=== PATIENT | female | born 1945 | race Hispanic/Latino ===

== ENCOUNTER 2024-06-16 09:23 | Emergency (ER) | payer OTHER, MEDICARE ==
[~2024-06-16] VITALS: Ht 152.4 cm; Wt 78.5 kg
[2024-06-16 09:52] LABS: BASOPHILS # (AUTO) 0.02 K/uL (0.00-0.20); BASOPHILS % (AUTO) 0.4 % (0.0-5.0); EOSINOPHILS # (AUTO) 0.14 K/uL (0.00-0.70); EOSINOPHILS % (AUTO) 2.9 % (0.0-8.0); HEMATOCRIT 40.2 % (36-48); IMMATURE GRANULOCYTE ABSOLUTE 0.01 K/uL (0-1); LYMPHOCYTES # (AUTO) 1.2 K/uL (1.0-4.8); LYMPHOCYTES % (AUTO) 24.5 % (21.0-51.0); MEAN CORPUSCULAR HEMOGLOBIN 31.2 pg (27.0-33.0); MEAN CORPUSCULAR HGB CONC 33.3 g/dL (32.0-36.0); MEAN CORPUSCULAR VOLUME 93.5 fL (79-99); MONOCYTES # (AUTO) 0.5 K/uL (0.1-1.0); MONOCYTES % (AUTO) 10.9 % (3.0-13.0); NEUTROPHILS % (AUTO) 61.1 % (40.0-77.0); PLATELET COUNT (AUTO) 227 K/uL (130-400); RED CELL DISTRIBUTION WIDTH 13.6 % (11.0-15.5); WHITE BLOOD COUNT (AUTO) 4.9 K/uL (4.8-10.8)
[2024-06-16 10:00] LABS: RAPID GROUP A STREP negative (NEGATIVE)
[2024-06-16 10:04] LABS: CREATININE 0.8 mg/dL (0.5-1.0); POTASSIUM 3.9 mmol/L (3.5-5.1)
[2024-06-16 10:10] LABS: COVID19 (SARS ANTIGEN RAPID) PRESUMPTIVE NEGATIVE (NEGATIVE); INFLUENZA TYPE A Negative For Type A (NEGATIVE); INFLUENZA TYPE B Negative For Type B (NEGATIVE)
[2024-06-16 10:32] LABS: B-TYPE NATRIURETIC PEPTIDE 14 pg/mL (0-100)
[2024-06-16] MEDS: dexaMETHasone SOD PHOSPHATE 4 MG/ML 1ML VIAL IM ONE (10:50)
[2024-06-16 11:03] VITALS: BP 118/76; TEMP 98.1; O2SAT 97
[2024-06-16] MEDS: IpraTROPium/alBUTERol SULFATE 3 ML SOLUTION IH ONE (11:06)
[2024-06-16 11:07] VITALS: PULSE 85; RESP 18
[2024-06-16] MEDS ORDERED: ALBU18HF7 IH (11:32)
[2024-06-16] MEDS ORDERED: AZIT500T4 PO (11:32)
[2024-06-16] MEDS ORDERED: PRED5TAB PO (11:32)
--- NOTE | 2024-06-16 11:32 | ERN ---
General Chief Complaint: Congestion Stated Complaint: COUGH Time Seen by MD: 09:24 Source: patient History of Present Illness Initial Comments PATIENT IS A 79-YEAR-OLD FEMALE COMING IN TO BE EVALUATED FOR URI SYMPTOMS. PATIENT STATES THAT THE SYMPTOMS BEGAN EARLIER TODAY. SHE STATES THAT HE DOES NOT HAS A HISTORY OF COPD OR ASTHMA. SHE STATES THAT HE WAS HAD NO FEVER OR CHILLS. Allergies: Coded Allergies: No Known Drug Allergies (Unverified Allergy, Unknown, 04/04/24) Past Medical History Past Medical History: Depression, Diabetes-Type II, Hypertension Past Surgical History: None ROS Dictation CONSTITUTIONAL: NO CHILLS, NO FEVER, NO WEAKNESS, NO DIAPHORESIS, NO MALAISE. HEAD/FACE: NO SIGNS OF TRAUMA. EENT: NO EYE PAIN, NO BLURRED VISION, NO TEARING, NO DOUBLE VISION, NO EAR PAIN, NO EAR DISCHARGE, NO NOSE PAIN, NO NASAL CONGESTION, NO THROAT PAIN, NO THROAT SWELLING, NO MOUTH PAIN. RESPIRATORY: COUGH, NO ORTHOPNEA, NO SOB, NO STRIDOR, WHEEZING. CARDIOVASCULAR: NO CHEST PAIN, NO EDEMA, NO PALPITATIONS, NO SYNCOPE. GASTROINTESTINAL/ABDOMINAL: NO ABDOMINAL PAIN, NO CONSTIPATION, NO DIARRHEA, NO NAUSEA, NO VOMITING. GENITOURINARY: NO ABNORMAL DISCHARGE, NO DYSURIA, NO FREQUENT URINATION, NO HEMATURIA. NO COMPLAINTS OF PAIN IN THE GENITALS. MUSCULOSKELETAL: NO BACK PAIN, NO GOUT, NO JOINT PAIN, NO JOINT SWELLING, NO MUSCLE PAIN, NO MUSCLE STIFFNESS, NO NECK PAIN. INTEGUMENTARY: NO CHANGE IN COLOR, NO CHANGE IN HAIR/NAILS, NO DRYNESS, NO LESION, NO LUMPS, NO RASH. NEUROLOGICAL/PSYCH: NO ANXIETY, NOT DEPRESSED, NO EMOTIONAL PROBLEM, NO HEADACHE, NO NUMBNESS, NO PRE-EXISTING DEFICIT, NO HISTORY OF SEIZURES, NO TREMORS, NO WEAKNESS. HEMATOLOGIC/LYMPHATIC: NOT ANEMIC, NO HISTORY OF BLOOD CLOTS, NO APPARENT BLEEDING, NO BRUISING, GLANDS NOT SWOLLEN. ALL SYSTEMS NEGATIVE, EXCEPT NOTED. Physical Exam Physical Exam Dictation VITAL SIGNS: REVIEWED. GENERAL APPEARANCE: ALERT, ORIENTED X3, NO ACUTE DISTRESS, OBESE. HEAD AND FACE: NON-TRAUMATIC. EYES: PERRL, PINK CONJUNCTIVAS, EYELID NO TRAUMA, ANTERIOR CHAMBER CLEAR. EARS: PINNAS INTACT AND NO SIGNS OF TRAUMA OR ERYTHEMA. EAR CANALS CLEAR AND NO DISCHARGE. TMS NO ERYTHEMA. NOSE: NO DISCHARGE, NO BLEEDING. OROPHARYNX: MOUTH NORMAL, TEETH NO CARIES, TONGUE PINK. PHARYNX CLEAR, NO ERYTHEMA. TONSILS NO EXUDATES, NO ABSCESSES NOTED. MUCOUS MEMBRANE MOIST. NECK: SUPPLE, NON-TENDER, NO THYROMEGALY, NO MASSES, NO JVD, NO BRUITS. BREAST: DEFERRED. CHEST: NO TENDERNESS, NO CREPITUS, NO PARADOXICAL MOVEMENT, NO RETRACTIONS. LUNGS: CLEAR, WELL-VENTILATED, SYMMETRIC, NO RALES, WHEEZING, RHONCHI, NO STRIDOR, GOOD BREATH SOUNDS BILATERALLY. HEART: REGULAR RATE, REGULAR RHYTHM, NO MURMUR, NO GALLOPS. VASCULAR: NO PERIPHERAL EDEMA. ABDOMEN: SOFT, POSITIVE BOWEL SOUNDS, NONDISTENDED, NO GUARDING, NONTENDER, NO REBOUND, NO MASSES NO HEPATOMEGALY, NO SPLENOMEGALY, NO SOLER'S SIGN, NO HERNIAS. RECTAL: DEFERRED. GENITAL: DEFERRED. NEUROLOGICAL: NORMAL SPEECH, GROSS MOTOR FUNCTION INTACT, GROSS SENSORY FUNCTION INTACT. MUSCULOSKELETAL: NECK NONTENDER, FULL RANGE OF MOTION, BACK NONTENDER, FULL RANGE OF MOTION. EXTREMITIES: NONTENDER, FULL RANGE OF MOTION. SKIN: COLOR PINK, DRY, NO TURGOR, NO RASH, NO LACERATIONS, NO ABRASIONS, NO CONTUSIONS. LYMPHATICS: DEFERRED. Results Laboratory and Microbiology Lab and Micro Result Laboratory Tests Test 06/16/24 09:30 06/16/24 09:46 Influenza Type A Antigen Negative For Type A Influenza Type B Antigen Negative For Type B SARS-CoV-2 Antigen (Rapid) PRESUMPTIVE NEGATIVE Group A Streptococcus Rapid negative (NEGATIVE) White Blood Count 4.9 K/uL (4.8-10.8) Red Blood Count 4.30 MIL/uL (4.00-5.50) Hemoglobin 13.4 g/dL (12.0-16.0) Hematocrit 40.2 % (36-48) Mean Corpuscular Volume 93.5 fL (79-99) Mean Corpuscular Hemoglobin 31.2 pg (27.0-33.0) Mean Corpuscular Hemoglobin Concent 33.3 g/dL (32.0-36.0) Red Cell Distribution Width 13.6 % (11.0-15.5) Platelet Count 227 K/uL (130-400) Mean Platelet Volume 9.5 fL (7.5-10.5) Immature Granulocyte % (Auto) 0.2 % (0-1) Neutrophils (%) (Auto) 61.1 % (40.0-77.0) Lymphocytes (%) (Auto) 24.5 % (21.0-51.0) Monocytes (%) (Auto) 10.9 % (3.0-13.0) Eosinophils (%) (Auto) 2.9 % (0.0-8.0) Basophils (%) (Auto) 0.4 % (0.0-5.0) Neutrophils # (Auto) 3.0 K/uL (1.8-7.7) Lymphocytes # (Auto) 1.2 K/uL (1.0-4.8) Monocytes # (Auto) 0.5 K/uL (0.1-1.0) Eosinophils # (Auto) 0.14 K/uL (0.00-0.70) Basophils # (Auto) 0.02 K/uL (0.00-0.20) Absolute Immature Granulocyte (auto 0.01 K/uL (0-1) Nucleated Red Blood Cells 0.0 % (0.0-0.19) Sodium Level 138 mmol/L (136-145) Potassium Level 3.9 mmol/L (3.5-5.1) Chloride Level 103 mmol/L (101-111) Carbon Dioxide Level 32 mmol/L (21-32) Blood Urea Nitrogen 21 mg/dL (7-18) H Creatinine 0.8 mg/dL (0.5-1.0) Glomerular Filtration Rate Calc 75 mL/min (>90) Random Glucose 103 mg/dL (70-105) Total Calcium 8.6 mg/dL (8.5-10.1) Troponin I High Sensitivity 4 ng/L (4-50) B-Type Natriuretic Peptide 14 pg/mL (0-100) Labs Reviewed?: Yes MDM MDM: DIFFERENTIAL DIAGNOSIS: URI, WHEEZING, COPD, ASTHMA, PNEUMONIA RATIONALE: TESTS CONSIDERED AND ORDERED SECONDARY TO SHARED DECISION MAKING INCLUDE: PREVIOUS OUTSIDE RECORDS REVIEWED: OLD ER VISITS. RISK OF COMPLICATION AND/OR MORBIDITY OR MORTALITY OF PATIENT MANAGEMENT: NONE MEDICATIONS-PER MEDICATION RECONCILIATION PATIENT IS A 79-YEAR-OLD FEMALE COMING IN TO BE EVALUATED FOR URI SYMPTOMS. LABORATORY WORKUP INCLUDING SWABS WERE NEGATIVE FOR ACUTE FINDINGS. PATIENT RECEIVED NEBULIZED TREATMENTS STATES HE FEELS MUCH BETTER. WE WILL BE DISCHARGED WITH A DIAGNOSIS OF URI WITH WHEEZING. PATIENT WAS ED Course Orders Procedure Category Date Status Time Cbc With Differential LAB 06/16/24 Complete 09:24 B-Type Natriuretic LAB 06/16/24 Complete Peptide 09:24 12 Lead Ekg Tracing- EKG 06/16/24 Logged Technical 09:24 Troponin I High LAB 06/16/24 Complete Sensitivity 09:24 Basic Metabolic Panel LAB 06/16/24 Complete 09:24 Covid19 (Sars Antigen LAB 06/16/24 Complete Rapid) 09:26 Influenza Type A & B, LAB 06/16/24 Complete Rapid 09:26 Rapid (Group A Strep) LAB 06/16/24 Complete 09:26 Dexamethasone 4mg/Ml PHA 06/16/24 Complete 1ml Vial (Dexametha 10:30 Ipratropium/Albuterol PHA 06/16/24 Complete Neb (Duoneb) 10:30 Current Medications Medications (Trade) Dose Ordered Sig/Dexter Route PRN Reason Start Time Stop Time Status Last Admin Dose Admin Albuterol (DUOneb) 2 udvial ONCE ONCE IH 06/16/24 10:30 06/16/24 10:31 DC 06/16/24 11:06 Dexamethasone Sodium Phosphate (dexaMETHasone 4MG/ML 1ML VIAL) 4 mg ONCE ONCE IM 06/16/24 10:30 06/16/24 10:31 DC 06/16/24 10:50 Vital Signs Date Time Temp Pulse Resp B/P (MAP) Pulse Ox O2 Delivery O2 Flow Rate FiO2 06/16/24 11:07 85 18 06/16/24 11:03 98.1 85 18 118/76 97 Room Air* 0 21 06/16/24 09:24 98.1 92 18 112/75 95 Room Air DX & DISP Disposition: Discharge Departure Impression: Primary Impression: URI (upper respiratory infection) Condition: Stable Scripts Prednisone (Prednisone) 5 Mg Tablet 1 TAB PO BID for 7 Days, #14 TAB 0 Refills Prov: GAVIN CASTILLO MD 06/16/24 Azithromycin (Azithromycin) 500 Mg Tablet 1 TAB PO DAILY for 5 Days, #5 TAB 0 Refills Prov: GAVIN CASTILLO MD 06/16/24 Albuterol Sulfate (Ventolin Hfa) 90 Mcg Hfa.aer.ad 2 PUFF IH Q4HPRN PRN for wheezing for 30 Days, #18 GM 0 Refills Prov: GAVIN CASTILLO MD 06/16/24 Additional Instructions: FOLLOW-UP WITH PRIMARY CARE PROVIDER IN 1 TO 2 DAYS. TAKE MEDICATIONS DIRECTED HERE IN THE EMERGENCY ROOM. OKAY TO CONTINUE HOME MEDICATIONS UNLESS OTHERWISE DISCUSSED DURING YOUR VISIT IN THE EMERGENCY ROOM TODAY. RETURN TO YOUR NEAREST EMERGENCY ROOM IF SYMPTOMS WORSEN OR IF THERE IS NO IMPROVEMENT. CALL 911 IF YOU NEED IMMEDIATE ASSISTANCE. TAKE TYLENOL [id number] NEEDED AND IF NO CONTRAINDICATIONS ARE PRESENT. INCREASE ORAL HYDRATION. A WOUND CULTURE OR URINE CULTURE WAS ORDERED HERE IN THE EMERGENCY ROOM DEPARTMENT PLEASE FOLLOW-UP WITH PRIMARY CARE PROVIDER AND ADVISE THEM TO GET REPEAT PORTS FROM OUR FACILITY. IF YOU HAD ANY JOON WRAP/SPLINTS THAT WERE APPLIED HERE, PLEASE DO NOT REMOVE THEM UNTIL YOU SEE YOUR PRIMARY CARE OR SPECIALTY. REFERRALS: Referrals: THOMAS MAURICE MD (PCP) Time of Disposition: 11:31 GAVIN CASTILLO MD June 16, 2024 11:32
--- NOTE | 2024-06-17 08:04 | EKG ---
[facility] Test Date: 2024-06-16 Test Time: 09:33:33 Pat Name: EBONI LEO Department: EDH Room: Gender: F Filing Clerk: [id number] : 1945 Requested By: GAVIN CASTILLO Order Number: [id number] Reading MD: Torito Garcia Measurements Intervals Cora Rate: 85 P: 55 IL: 173 QRS: 36 QRSD: 82 T: 65 QT: 368 QTc: 437 Interpretive Statements Sinus rhythm Compared to ECG 04/04/2024 20:32:01 Atrial premature complex(es) no longer present Electronically Signed On 06-17-2024 12:48:34 CDT by Torito Garcia Please click the below link to view image of tracing.
== END 2024-06-16 11:45 | disposition home or self-care (01) ==
LOC: EDH 09:23
DX: J06.9 Acute upper respiratory infection, unspecified (principal); E11.9 Type 2 diabetes mellitus without complications; I10 Essential (primary) hypertension; Z20.822 Contact with and (suspected) exposure to COVID-19
CPT/HCPCS: 99284; 87426; 84484; 80048; 83880; 85025; 87880; 87804 ×2; 36415; 96372; 93005; 94640; J1100

== ENCOUNTER 2024-11-22 17:48 | Emergency (ER) | payer OTHER, MEDICAID ==
[~2024-11-22] VITALS: Ht 154.9 cm; Wt 79.4 kg
[~2024-11-22 17:48] MED LIST: ALBU18HF7 IH; AZIT500T4 PO; PRED5TAB PO
[2024-11-22 18:42] LABS: IMMATURE GRANULOCYTE ABSOLUTE 0.02 K/uL (0-1); NUCLEATED RED BLOOD CELLS 0.0 % (0.0-0.19); PLATELET COUNT (AUTO) 248 K/uL (130-400); RED BLOOD CELL COUNT(AUTO) 4.35 MIL/uL (4.00-5.50); RED CELL DISTRIBUTION WIDTH 13.2 % (11.0-15.5); WHITE BLOOD COUNT (AUTO) 5.9 K/uL (4.8-10.8)
[2024-11-22 18:55] LABS: CREATININE 0.7 mg/dL (0.5-1.0); GLOMERULAR FILTR. RATE CALC 88.0 mL/min (>90); GLUCOSE,RANDOM 136.0 mg/dL (70-105); INR 0.99 (0.85-1.15); SODIUM SERUM 145.0 mmol/L (136-145); UREA NITROGEN, BLOOD 13.0 mg/dL (7-18)
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
[2024-11-22 19:15] LABS: ASPARTATE AMINOTRANSFERASE 23.0 U/L (10-37); CREATINE KINASE, TOTAL 96.0 U/L (21-232); TOTAL PROTEIN, SERUM 7.4 g/dL (6.0-8.3)
[2024-11-22 19:42] LABS: SARS-CoV-2, RNA, NAAT NEGATIVE SARS CoV-2 (NEGATIVE)
[2024-11-22 19:48] LABS: INFLUENZA TYPE A Negative For Type A (NEGATIVE); INFLUENZA TYPE B Negative For Type B (NEGATIVE)
[2024-11-22 19:55] VITALS: BP 145/65; PULSE 85; RESP 20; TEMP 99.3; O2SAT 98
--- NOTE | 2024-11-22 21:13 | ERN ---
General Chief Complaint: Chest Pain Stated Complaint: CHEST PRESSURE Time Seen by MD: 17:53 Time Seen by Midlevel: 17:53 Source: patient History of Present Illness Initial Comments 79-year-old female being brought in by EMS for evaluation of chest pressure that started prior to arrival. Patient verbalized feeling weaker than normal and is here for further evaluation. Patient has no other symptoms at this time. Patient was administered 324 mg of aspirin. Allergies: Coded Allergies: No Known Drug Allergies (Unverified Allergy, Unknown, 04/04/24) Home Meds Active Scripts Prednisone (Prednisone) 5 Mg Tablet, 1 TAB PO BID for 7 Days, #14 TAB 0 Refills Prov:GAVIN CASTILLO MD 06/16/24 Azithromycin (Azithromycin) 500 Mg Tablet, 1 TAB PO DAILY for 5 Days, #5 TAB 0 Refills Prov:GAVIN CASTILLO MD 06/16/24 Albuterol Sulfate (Ventolin Hfa) 90 Mcg Hfa.aer.ad, 2 PUFF IH Q4HPRN PRN for wheezing for 30 Days, #18 GM 0 Refills Prov:GAVIN CASTILLO MD 06/16/24 Past Medical History Past Medical History: Diabetes-Type II, Hypertension, [place] Past Surgical History: None ROS Dictation CONSTITUTIONAL: Negative except for HPI HEAD/FACE: Negative except for HPI EENT: Negative except for HPI RESPIRATORY: Negative except for HPI GASTROINTESTINAL/ABDOMINAL: Negative except for HPI GENITOURINARY: Negative except for HPI MUSCULOSKELETAL: Negative except for HPI INTEGUMENTARY: Negative except for HPI NEUROLOGICAL/PSYCH: Negative except for HPI HEMATOLOGIC/LYMPHATIC: Negative except for HPI All Systems Negative, Except as noted above. 13 point review of systems assessed and all negative except for above. Physical Exam Physical Exam Dictation Vital Signs reviewed General Appearance: Alert, oriented x 3, no acute distress, well developed, nourished. Head and Face: non-traumatic. Eyes: PERRL, pink conjunctivas, eyelid no trauma, anterior chamber with arcus senilis. Ears: Pinnas intact and no signs of trauma or erythema ear canals clear and no discharge TM no erythema Nose: No discharge, no bleeding. Oropharynx: Mouth normal, tongue pink, pharynx clear,no erythema, tonsils no exudates, no abscesses noted, mucous membrane moist Neck: Supple, non-tender, no thyromegaly, no masses, no JVD, no bruits Breast:Deferred Chest:No tenderness, no crepitus, no paradoxical movement, no retractions Lungs:Clear, well-ventilated, symmetric, no rales, no wheezing, no rhonchi, no stridor, good breath sounds bilaterally Heart: Regular rate, regular rhythm, no murmur, no gallops Vascular: no peripheral edema, Abdomen: Soft, positive bowel sounds, nondistended, no guarding, nontender, no rebound, no masses no hepatomegaly, no splenomegaly, no Gaspar's sign, no hernias. Rectal: Deferred Genital: Deferred Neurological: Normal speech, motor function intact, sensory function intact Musculoskeletal: Neck nontender, full range of motion, back nontender, full range of motion, Extremities: nontender, full range of motion Skin: Color pink, dry, no turgor, no rash, no lacerations, no abrasions, no contusions. Lymphatic: Deferred Results Laboratory and Microbiology Lab and Micro Result Laboratory Tests Test 11/22/24 18:35 11/22/24 19:11 11/22/24 20:11 White Blood Count 5.9 K/uL (4.8-10.8) Red Blood Count 4.35 MIL/uL (4.00-5.50) Hemoglobin 13.6 g/dL (12.0-16.0) Hematocrit 40.4 % (36-48) Mean Corpuscular Volume 92.9 fL (79-99) Mean Corpuscular Hemoglobin 31.3 pg (27.0-33.0) Mean Corpuscular Hemoglobin Concent 33.7 g/dL (32.0-36.0) Red Cell Distribution Width 13.2 % (11.0-15.5) Platelet Count 248 K/uL (130-400) Mean Platelet Volume 9.5 fL (7.5-10.5) Immature Granulocyte % (Auto) 0.3 % (0-1) Neutrophils (%) (Auto) 65.7 % (40.0-77.0) Lymphocytes (%) (Auto) 22.2 % (21.0-51.0) Monocytes (%) (Auto) 7.7 % (3.0-13.0) Eosinophils (%) (Auto) 3.8 % (0.0-8.0) Basophils (%) (Auto) 0.3 % (0.0-5.0) Neutrophils # (Auto) 3.9 K/uL (1.8-7.7) Lymphocytes # (Auto) 1.3 K/uL (1.0-4.8) Monocytes # (Auto) 0.5 K/uL (0.1-1.0) Eosinophils # (Auto) 0.22 K/uL (0.00-0.70) Basophils # (Auto) 0.02 K/uL (0.00-0.20) Absolute Immature Granulocyte (auto 0.02 K/uL (0-1) Nucleated Red Blood Cells 0.0 % (0.0-0.19) Prothrombin Time 10.5 SEC (9.6-11.6) Prothromb Time International Ratio 0.99 (0.85-1.15) Activated Partial Thromboplast Time 25.5 SEC (26.3-35.5) L Sodium Level 145 mmol/L (136-145) Potassium Level 4.1 mmol/L (3.5-5.1) Chloride Level 107 mmol/L (101-111) Carbon Dioxide Level 28 mmol/L (21-32) Blood Urea Nitrogen 13 mg/dL (7-18) Creatinine 0.7 mg/dL (0.5-1.0) Glomerular Filtration Rate Calc 88 mL/min (>90) Random Glucose 136 mg/dL (70-105) H Total Calcium 8.5 mg/dL (8.5-10.1) Magnesium Level 2.10 mg/dL (1.80-2.40) Total Bilirubin 0.3 mg/dL (0.2-1.0) Aspartate Amino Transf (AST/SGOT) 23 U/L (10-37) Alanine Aminotransferase (ALT/SGPT) 21 U/L (12-78) Alkaline Phosphatase 63 U/L (50-136) Total Creatine Kinase 96 U/L (21-232) Troponin I High Sensitivity 7 ng/L (4-50) 8 ng/L (4-50) B-Type Natriuretic Peptide 52 pg/mL (0-100) Total Protein 7.4 g/dL (6.0-8.3) Albumin 3.5 g/dL (3.5-5.0) Influenza Type A Antigen Negative For Type A Influenza Type B Antigen Negative For Type B SARS-CoV-2, RNA, NAAT NEGATIVE SARS CoV-2 Labs Reviewed?: Yes MDM MDM: Differential diagnosis: Acute coronary syndrome, pneumonia, pleural effusion There are no social concerns with this patient. Prescription drug management Prescriptions will include: None Medical management and examination interpretation discussions were had by me with other qualified healthcare professionals as indicated for the patient's care. ED Course Orders Procedure Category Date Status Time 12 Lead Ekg Tracing- EKG 11/22/24 Logged Technical 17:53 B-Type Natriuretic LAB 11/22/24 Complete Peptide 17:53 Cbc With Differential LAB 11/22/24 Complete 17:53 Comprehensive LAB 11/22/24 Complete Metabolic Panel 17:53 Creatine Kinase, Total LAB 11/22/24 Complete 17:53 Magnesium LAB 11/22/24 Complete 17:53 Troponin I High LAB 11/22/24 Complete Sensitivity 17:53 Chest 1vw RAD 11/22/24 Resulted 17:53 Pt And Ptt LAB 11/22/24 Complete 17:53 Covid Rna Naat LAB 11/22/24 Complete 18:54 Influenza Type A & B, LAB 11/22/24 Complete Rapid 18:54 Troponin I High LAB 11/22/24 Complete Sensitivity 19:52 Vital Signs Date Time Temp Pulse Resp B/P (MAP) Pulse Ox O2 Delivery O2 Flow Rate FiO2 11/22/24 19:55 99.3 85 20 145/65 98 Room Air* 0 21 11/22/24 18:10 99.1 83 20 155/95 96 Room Air* 0 21 11/22/24 17:50 99.1 83 20 155/95 96 Room Air 0 HEART Score Response (Comments) Value History: Low suspicion (0) 0 EKG: Normal 0 Age: > 65yrs (+2) 2 Risk Factors: 1-2 risk factors (+1) 1 Initial Troponin: Normal limit (0) 0 Total 3 DX & DISP Disposition: Discharge Departure Impression: Primary Impression: Non-cardiac chest pain Condition: Stable Additional Instructions: Your blood work today is unremarkable. There was no evidence of anemia. No evidence of systemic infection. Your kidney function is normal. Your electrolytes are normal. Your two sets of cardiac enzymes are negative. Your chest x-ray is normal. Your EKG does not show any evidence of a heart attack. Referrals: THOMAS MAURICE MD (PCP) Time of Disposition: 21:11 I have reviewed the case, and I agree with, Diagnosis and Plan I performed the substantive portion of the visit. I have reviewed and personally made and approve the management plan that is documented in the note by myself or the ZACHARY. I acknowledge for responsibility for the patient's management plan. [address] [facility] Nov 22, 2024 21:13
--- NOTE | 2024-11-22 21:32 | NUR ---
DC INSTRUCTION GIVEN, AW DAUGHTER CARLOS HAMILTON TO PICK HER UP MULTIPLE PHONE CALLS RECEIVED FRO PT'S DAUGHTER FROM [place]. UPDATE GIVEN. I HAVE INFORM THEM THAT I WILL JUST BE GIVING INFORMATION TO THEIR SISTER WHO LIVES LOCALLY
--- NOTE | 2024-11-22 22:04 | EKG ---
[facility] Test Date: 2024-11-22 Test Time: 17:48:32 Pat Name: EBONI LEO Department: ED Room: Gender: F Technical Services Coordinator: [id number] : 1945 Requested By: ISRAEL WAY Order Number: [id number] Reading MD: Torito Gonzalez Measurements Intervals [place] Rate: 76 P: 26 MA: 179 QRS: -17 QRSD: 91 T: 30 QT: 371 QTc: 416 Interpretive Statements Sinus rhythm Low voltage, precordial leads Compared to ECG 06/16/2024 09:33:33 Low QRS voltage now present Electronically Signed On 11-24-2024 16:06:35 CDT by Torito Gonzalez Please click the below link to view image of tracing.
== END 2024-11-22 22:43 | disposition home or self-care (01) ==
LOC: EDH 17:48
DX: R07.89 Other chest pain (principal); R53.1 Weakness; E11.9 Type 2 diabetes mellitus without complications; I10 Essential (primary) hypertension; I25.2 Old myocardial infarction; Z79.52 Long term (current) use of systemic steroids; Z20.822 Contact with and (suspected) exposure to COVID-19
CPT/HCPCS: 36415; 71045; 80053; 82550; 83735; 83880; 84484; 85025; 85610; 85730; 87635; 87804; 93005; 99285

== ENCOUNTER 2024-12-02 17:30 | Emergency (ER) | payer OTHER, MEDICAID ==
[~2024-12-02] VITALS: Ht 152.4 cm; Wt 75.3 kg
[2024-12-02 18:00] VITALS: TEMP 98.1
[2024-12-02 18:32] LABS: IMMATURE GRANULOCYTE ABSOLUTE 0.01 K/uL (0-1); NUCLEATED RED BLOOD CELLS 0.0 % (0.0-0.19); PLATELET COUNT (AUTO) 243 K/uL (130-400); RED BLOOD CELL COUNT(AUTO) 4.22 MIL/uL (4.00-5.50); RED CELL DISTRIBUTION WIDTH 13.2 % (11.0-15.5); WHITE BLOOD COUNT (AUTO) 5.2 K/uL (4.8-10.8)
[2024-12-02 18:43] LABS: CREATININE 0.7 mg/dL (0.5-1.0); GLOMERULAR FILTR. RATE CALC 88.0 mL/min (>90); GLUCOSE,RANDOM 135.0 mg/dL (70-105); SODIUM SERUM 146.0 mmol/L (136-145); UREA NITROGEN, BLOOD 14.0 mg/dL (7-18)
[2024-12-02 18:44] LABS: APPEARANCE,URINE CLOUDY (CLEAR); GLUCOSE, URINE (UA) NEGATIVE (NEGATIVE); LEUKOCYTE ESTERASE ,URINE 500 Leu/uL (NEGATIVE); NITRATE,URINE NEGATIVE (NEGATIVE); OCCULT BLOOD,URINE +- (TRACE) (NEGATIVE)
[2024-12-02 18:47] LABS: CREATINE KINASE, TOTAL 77.0 U/L (21-232)
[2024-12-02 18:51] LABS: ADD UA MICROSCOPIC NO
--- NOTE | 2024-12-02 19:08 | ERN ---
ED Note History of Present Illness Stated Complaint: SOB Chief Complaint: Shortness of Breath Time Seen by MD: 17:33 Time Seen by Midlevel: 17:33 Dictation: The patient is a 79 year old female with history of hypertension who presents to the emergency department with complains of shortness of breath onset prior to arrival. Patient denies any chest pain, cough or congestion. Denies any other symptoms. Allergies: Coded Allergies: No Known Drug Allergies (Unverified Allergy, Unknown, 04/04/24) Home Meds Active Scripts Prednisone (Prednisone) 5 Mg Tablet, 1 TAB PO BID for 7 Days, #14 TAB 0 Refills Prov:GAVIN CASTILLO MD 06/16/24 Azithromycin (Azithromycin) 500 Mg Tablet, 1 TAB PO DAILY for 5 Days, #5 TAB 0 Refills Prov:GAVIN CASTILLO MD 06/16/24 Albuterol Sulfate (Ventolin Hfa) 90 Mcg Hfa.aer.ad, 2 PUFF IH Q4HPRN PRN for wheezing for 30 Days, #18 GM 0 Refills Prov:GAVIN CASTILLO MD 06/16/24 Past Medical History Past Medical History: Diabetes-Type II, Hypertension, MT Surgical History: None RN Note Reviewed/Agreed w/PFSH: Yes Review of System Dictation Constitutional: Negative for fever,chills, and weight loss Eyes: Negative for injury, pain,redness, and discharge ENT: Negative for injury,pain or swelling Cardiovascular: Negative for chest pain, palpitations, and edema Respiratory: Negative for cough, and wheezing, positive for shortness of breath Abdomen/GI: Negative for abdominal pain, nausea, vomiting, diarrhea, and constipation Back: Negative for injury and pain : Negative for injury, bleeding and discharge MS/Extremity: Negative for injury and deformity Skin: Negative for rash, and discoloration Neuro: Negative for headache, weakness, numbness, tingling, and seizure Psych: Negative for suicide ideation, homicidal ideation, and hallucinations Initial Vital Sign VS Vital Signs Date Time Temp Pulse Resp B/P (MAP) Pulse Ox O2 Delivery O2 Flow Rate FiO2 12/02/24 17:36 98.1 90 20 170/85 97 Room Air 12/02/24 18:00 0 21 Physical Exam Dictation Vital Signs reviewed General Appearance: Alert, oriented x 3, no acute distress, well developed, nourished. Head and Face: non-traumatic. Eyes: PERRL, pink conjunctivas, eyelid no trauma, anterior chamber with arcus senilis. Ears: Pinnas intact and no signs of trauma or erythema ear canals clear and no discharge TM no erythema Nose: No discharge, no bleeding. Oropharynx: Mouth normal, tongue pink. pharynx clear,no erythema, tonsils no exudates, no abscesses noted, mucous membrane moist Neck: Supple, non-tender, no thyromegaly, no masses, no JVD, no bruits Breast:Deferred Chest:No tenderness, no crepitus, no paradoxical movement, no retractions Lungs:Clear, well-ventilated, symmetric, no rales, no wheezing, no rhonchi, no stridor, good breath sounds bilaterally Heart: Regular rate, regular rhythm, no murmur, no gallops Vascular: no peripheral edema, Abdomen: Soft, positive bowel sounds, nondistended, no guarding, nontender, no rebound, no masses no hepatomegaly, no splenomegaly, no Gaspar's sign, no hernias. Rectal: Deferred Genital: Deferred Neurological: Normal speech, motor function intact, sensory function intact Musculoskeletal: Neck nontender, full range of motion, back nontender, full range of motion, Extremities: nontender, full range of motion Skin: Color pink, dry, no turgor, no rash, no lacerations, no abrasions, no contusions. Lymphatic: Deferred Results (Laboratory/Radiology) Laboratory/Radiology Laboratory Tests Test 12/02/24 18:25 12/02/24 18:32 12/02/24 18:55 White Blood Count 5.2 K/uL (4.8-10.8) Red Blood Count 4.22 MIL/uL (4.00-5.50) Hemoglobin 13.1 g/dL (12.0-16.0) Hematocrit 38.3 % (36-48) Mean Corpuscular Volume 90.8 fL (79-99) Mean Corpuscular Hemoglobin 31.0 pg (27.0-33.0) Mean Corpuscular Hemoglobin Concent 34.2 g/dL (32.0-36.0) Red Cell Distribution Width 13.2 % (11.0-15.5) Platelet Count 243 K/uL (130-400) Mean Platelet Volume 9.8 fL (7.5-10.5) Immature Granulocyte % (Auto) 0.2 % (0-1) Neutrophils (%) (Auto) 61.7 % (40.0-77.0) Lymphocytes (%) (Auto) 25.1 % (21.0-51.0) Monocytes (%) (Auto) 8.7 % (3.0-13.0) Eosinophils (%) (Auto) 3.9 % (0.0-8.0) Basophils (%) (Auto) 0.4 % (0.0-5.0) Neutrophils # (Auto) 3.2 K/uL (1.8-7.7) Lymphocytes # (Auto) 1.3 K/uL (1.0-4.8) Monocytes # (Auto) 0.5 K/uL (0.1-1.0) Eosinophils # (Auto) 0.20 K/uL (0.00-0.70) Basophils # (Auto) 0.02 K/uL (0.00-0.20) Absolute Immature Granulocyte (auto 0.01 K/uL (0-1) Nucleated Red Blood Cells 0.0 % (0.0-0.19) Sodium Level 146 mmol/L (136-145) H Potassium Level 4.0 mmol/L (3.5-5.1) Chloride Level 107 mmol/L (101-111) Carbon Dioxide Level 30 mmol/L (21-32) Blood Urea Nitrogen 14 mg/dL (7-18) Creatinine 0.7 mg/dL (0.5-1.0) Glomerular Filtration Rate Calc 88 mL/min (>90) Random Glucose 135 mg/dL (70-105) H Total Calcium 8.7 mg/dL (8.5-10.1) Magnesium Level 2.20 mg/dL (1.80-2.40) Total Creatine Kinase 77 U/L (21-232) Troponin I High Sensitivity 9 ng/L (4-50) B-Type Natriuretic Peptide 102 pg/mL (0-100) H Urine Color COLORLESS (YELLOW) Urine Appearance CLOUDY (CLEAR) H Urine pH 7.5 (5.0-8.0) Urine Specific [place] 1.006 (1.001-1.031) Urine Protein NEGATIVE mg/dL (NEGATIVE) Urine Glucose (UA) NEGATIVE mg/dL (NEGATIVE) Urine Ketones NEGATIVE mg/dL (NEGATIVE) Urine Occult Blood +- (TRACE) (NEGATIVE) H Urine Nitrate NEGATIVE (NEGATIVE) Urine Bilirubin NEGATIVE mg/dL (NEGATIVE) Urine Urobilinogen 0.2 mg/dL (0.2-1.0) Urine Leukocyte Esterase 500 [place]/uL (NEGATIVE) H Influenza Type A Antigen Negative For Type A Influenza Type B Antigen Negative For Type B SARS-CoV-2 Antigen (Rapid) PRESUMPTIVE NEGATIVE REASON: abnormal xray, r/o aneurysm ORDERING PHYSICIAN: FERN FLORES [facility] PROCEDURE: CTA CHEST - CT ANGIO CHEST EXAM: CTA Chest with Intravenous Contrast for Aortic Dissection CLINICAL HISTORY: Patient presents with an abnormal chest X-ray to rule out an aneurysm. TECHNIQUE: Axial CTA images of the chest were obtained with intravenous contrast using an aortic dissection protocol. MIP reconstructed images were created and reviewed. COMPARISON: Prior radiograph chest dated December 02, 2024. FINDINGS: AORTA: Atheromatous calcifications are seen in the aorta. There is aneurysmal dilatation of the descending thoracic aorta measuring 5.6 x 5.3 cm with eccentric mural thrombosis causing approximately 20-30% luminal narrowing. No evidence of aortic dissection. PULMONARY ARTERIES: The examination is optimized for evaluation of the aorta rather than the pulmonary arteries. No central or segmental pulmonary embolism identified. LUNGS: Subsegmental atelectasis with few fibrotic strands in the left lower lobe. No mass or focal consolidation. PLEURAL SPACES: No pneumothorax or pleural effusion. HEART: No cardiomegaly. No significant pericardial effusion. LYMPH NODES: No lymphadenopathy. BONES: Multilevel mild degenerative changes of the spine. No acute osseous abnormality. UPPER ABDOMEN: The gallbladder is surgically absent. Focal cortical scarring in the upper pole of the left kidney. IMPRESSION: Aneurysmal dilatation of the descending thoracic aorta measuring 5.6 x 5.3 cm with eccentric mural thrombosis causing approximately 20-30% luminal narrowing. No evidence of aortic dissection. No acute infiltrate or effusion. /[place] REASON: sob ORDERING PHYSICIAN: FERN FLORES [facility]IST PROCEDURE: CXR1VW - CHEST 1VW EXAM: CR Chest, 1 View. CLINICAL HISTORY: sob COMPARISON: Radiograph dated November 22, 2024 FINDINGS: LUNGS: The lungs show no infiltrate or other acute finding. Mild bibasilar atelectasis. PLEURAL SPACES: No evidence of pleural effusion or pneumothorax. MEDIASTINUM: There is suggestion of a prominent descending thoracic aorta that may reflect superimposition of shadows versus an aneurysm. Recommend CT angiography of the chest for further evaluation. Pulmonary vessels are within normal limits. BONES: No aggressive appearing osseous lesion seen. IMPRESSION: 1. No acute cardiopulmonary findings. 2. Suggestion of prominent descending thoracic aorta, possibly reflecting superimposition of shadows versus aneurysm. Recommend CT angiography of the chest for further evaluation. /[place] Labs Reviewed?: Yes EKG: (+) rhythm (Sinus rhythm) EKG Comment: Date:11/14/2024 Time:1809 Ventricular rate:68 MT interval:186 QRS duration:91 QT/QTc:382/407 EKG interpretation: Sinus rhythm Reviewed by ED Attending NO STEMI ED Course ED Course Orders Procedure Category Date Status Time Cbc With Differential LAB 12/02/24 Complete 17:59 Chest 1vw RAD 12/02/24 Resulted 17:59 12 Lead Ekg Tracing- EKG 12/02/24 Complete Technical 17:59 Magnesium LAB 12/02/24 Complete 17:59 Creatine Kinase, Total LAB 12/02/24 Complete 17:59 Troponin I High LAB 12/02/24 Complete Sensitivity 17:59 Urinalysis Profile LAB 12/02/24 Complete 17:59 Basic Metabolic Panel LAB 12/02/24 Complete 17:59 Covid19 (Sars Antigen LAB 12/02/24 Complete Rapid) 17:59 Influenza Type A & B, LAB 12/02/24 Complete Rapid 17:59 B-Type Natriuretic LAB 12/02/24 Complete Peptide 17:59 Culture Urine JOVANNA 12/02/24 In Process 18:51 Ceftriaxone 1g Vial PHA 12/02/24 Complete (Rocephine 1g Inj) 19:[address] 12/02/24 Resulted 20:35 Iohexol (Omnipaque) PHA 12/02/24 Complete 21:19 Hydralazine 20mg Inj PHA 12/02/24 Complete (Apresoline 20mg In 22:30 Current Medications Medications (Trade) Dose Ordered Sig/[place] Route PRN Reason Start Time Stop Time Status Last Admin Dose Admin Ceftriaxone Sodium (ROCEphine 1G INJ) 1 gm ONCE ONCE IVPB 12/02/24 19:30 12/02/24 19:31 DC 12/02/24 21:14 Hydralazine HCl (APRESOLine 20MG INJ) 10 mg ONCE ONCE IV 12/02/24 22:30 12/02/24 22:49 DC 12/02/24 23:09 Iohexol (Omnipaque) 50 ml STK-MED ONCE IV 12/02/24 21:19 12/02/24 21:19 DC Vital Signs Date Time Temp Pulse Resp B/P (MAP) Pulse Ox O2 Delivery O2 Flow Rate FiO2 12/03/24 00:24 65 18 109/48 98 Room Air* 0 21 12/02/24 23:43 70 18 139/67 99 Room Air* 0 21 12/02/24 23:09 68 186/90 12/02/24 22:01 68 18 188/92 98 Room Air* 0 21 12/02/24 21:32 68 18 186/90 99 Room Air* 0 21 12/02/24 19:00 64 18 128/78 98 Room Air* 0 21 12/02/24 18:00 98.1 90 20 170/85 97 Room Air* 0 21 12/02/24 17:36 98.1 90 20 170/85 97 Room Air Medical Decision Making MDM The patient is a 79 year old female with history of hypertension who presents to the emergency department with complains of shortness of breath onset prior to arrival. Patient denies any chest pain, cough or congestion. Denies any other symptoms. CBC showed no leukocytosis, no anemia, chemistry showed mild hyponatremia, mildly elevated BNP, negative troponin, urinalysis positive for leukocyte esterase. Patient will be treated with the antibiotics. Serology negative. Chest x-ray was abnormal so CT angio was performed. Patient has a aneurysm dilation of the descending thoracic aorta measuring 5.6 x 5.3 cm with a eccentric mural thrombosis causing approximately 20-30 luminal narrowing. No evidence of aortic dissection. Discussed case with cardiothoracic surgeon Dr. Ten Ceballos who states patient can follow up as outpatient. Blood pressure is controlled. Patient reports no longer feeling shortness of breath. On physical exam patient is in no acute distress, nontoxic appearance. Stable vital signs. Labs and imaging discussed with the patient who agrees to follow up with Dr. Ceballos. Differential diagnosis: Pneumonia, fluid overload, anxiety, ACS Need for hospitalization: Patient does not meet criteria for hospitalization. There are no social concerns with this patient. DX & DISP Disposition: Discharge Departure Impression: Primary Impression: Aneurysmal dilatation Additional Impressions: Hypertension, Shortness of breath, Dilatation of thoracic aorta, UTI (urinary tract infection) Condition: Stable Scripts Cephalexin Monohydrate (Keflex) 500 Mg Cap 1 CAP PO BID for 5 Days, #10 CAP 0 Refills Prov: FERN FLORES 12/03/24 Additional Instructions: Your urine showed a urinary tract infection. Please take your medications as prescribed. You have to follow up with . Call and make an appointment. Also follow up with your PCP. If anything changes or worsens please return to ER. FOLLOW-UP WITH PRIMARY CARE PROVIDER IN 1 TO 2 DAYS. TAKE MEDICATIONS DIRECTED HERE IN THE EMERGENCY ROOM. OKAY TO CONTINUE HOME MEDICATIONS UNLESS O THERWISE DISCUSSED DURING YOUR VISIT IN THE EMERGENCY ROOM TODAY. RETURN TO YOUR NEAREST EMERGENCY ROOM IF SYMPTOMS WORSEN OR IF THERE IS NO IMPROVEMENT. CALL 911 IF YOU NEED IMMEDIATE ASSISTANCE. TAKE TYLENOL [id number] NEEDED AND IF NO CONTRAINDICATIONS ARE PRESENT. INCREASE ORAL HYDRATION. A WOUND CULTURE OR URINE CULTURE WAS ORDERED HERE IN THE EMERGENCY ROOM DEPARTMENT PLEASE FOLLOW-UP WITH PRIMARY CARE PROVIDER AND ADVISE THEM TO GET REPEAT PORTS FROM OUR FACILITY. IF YOU HAD ANY JOON WRAP/SPLINTS THAT WERE APPLIED HERE, PLEASE DO NOT REMOVE THEM UNTIL YOU SEE YOUR PRIMARY CARE OR SPECIALTY. Referrals: THOMAS MAURICE MD (PCP) SHAWNEE CEBALLOS MD Time of Disposition: 00:29 I have reviewed the case, and I agree with, Diagnosis and Plan FERN FLORES Dec 02, 2024 19:08
[2024-12-02 19:18] LABS: COVID19 (SARS ANTIGEN RAPID) PRESUMPTIVE NEGATIVE (NEGATIVE); INFLUENZA TYPE A Negative For Type A (NEGATIVE); INFLUENZA TYPE B Negative For Type B (NEGATIVE)
--- NOTE | 2024-12-02 19:26 | HMCIMG ---
EXAM: CR Chest, 1 View. CLINICAL HISTORY: sob COMPARISON: Radiograph dated November 22, 2024 FINDINGS: LUNGS: The lungs show no infiltrate or other acute finding. Mild bibasilar atelectasis. PLEURAL SPACES: No evidence of pleural effusion or pneumothorax. MEDIASTINUM: There is suggestion of a prominent descending thoracic aorta that may reflect superimposition of shadows versus an aneurysm. Recommend CT angiography of the chest for further evaluation. Pulmonary vessels are within normal limits. BONES: No aggressive appearing osseous lesion seen. IMPRESSION: 1. No acute cardiopulmonary findings. 2. Suggestion of prominent descending thoracic aorta, possibly reflecting superimposition of shadows versus aneurysm. Recommend CT angiography of the chest for further evaluation. /[place]
--- NOTE | 2024-12-02 20:47 | EKG ---
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
[2024-12-02] MEDS ORDERED: IOHEXOL-350 50ML VIAL IV ONE (21:19)
--- NOTE | 2024-12-02 23:50 | HMCIMG ---
EXAM: CTA Chest with Intravenous Contrast for Aortic Dissection CLINICAL HISTORY: Patient presents with an abnormal chest X-ray to rule out an aneurysm. TECHNIQUE: Axial CTA images of the chest were obtained with intravenous contrast using an aortic dissection protocol. MIP reconstructed images were created and reviewed. COMPARISON: Prior radiograph chest dated December 02, 2024. FINDINGS: AORTA: Atheromatous calcifications are seen in the aorta. There is aneurysmal dilatation of the descending thoracic aorta measuring 5.6 x 5.3 cm with eccentric mural thrombosis causing approximately 20-30% luminal narrowing. No evidence of aortic dissection. PULMONARY ARTERIES: The examination is optimized for evaluation of the aorta rather than the pulmonary arteries. No central or segmental pulmonary embolism identified. LUNGS: Subsegmental atelectasis with few fibrotic strands in the left lower lobe. No mass or focal consolidation. PLEURAL SPACES: No pneumothorax or pleural effusion. HEART: No cardiomegaly. No significant pericardial effusion. LYMPH NODES: No lymphadenopathy. BONES: Multilevel mild degenerative changes of the spine. No acute osseous abnormality. UPPER ABDOMEN: The gallbladder is surgically absent. Focal cortical scarring in the upper pole of the left kidney. IMPRESSION: Aneurysmal dilatation of the descending thoracic aorta measuring 5.6 x 5.3 cm with eccentric mural thrombosis causing approximately 20-30% luminal narrowing. No evidence of aortic dissection. No acute infiltrate or effusion. /[place]
[2024-12-03 00:24] VITALS: BP 109/48; PULSE 65; RESP 18; O2SAT 98
[2024-12-03] MEDS ORDERED: CEPH500B PO (00:34)
== END 2024-12-03 00:56 | disposition home or self-care (01) ==
LOC: EDH 17:30
DX: I71.20 Thoracic aortic aneurysm, without rupture, unspecified (principal); I10 Essential (primary) hypertension; N39.0 Urinary tract infection, site not specified; R06.02 Shortness of breath; E11.9 Type 2 diabetes mellitus without complications; I25.2 Old myocardial infarction; Z79.52 Long term (current) use of systemic steroids; Z20.822 Contact with and (suspected) exposure to COVID-19
CPT/HCPCS: 99285; 96374; 71275; 71045; 96375; 87426; 82550; 83735; 84484; 80048; 83880; 85025; 87086 ×3; 87186 ×2; 87804 ×2; 81003; 36415; 93005; J0360; J0696; Q9967

== ENCOUNTER 2025-02-05 21:25 | Emergency (ER) | payer OTHER, MEDICAID ==
[~2025-02-05] VITALS: Ht 149.9 cm; Wt 72.6 kg
[~2025-02-05 21:25] MED LIST changes: +CEPH500B PO
--- NOTE | 2025-02-05 21:57 | NUR ---
PT PLACED IN ED ROOM 10. PT CARE ASSUMED AT THIS TIME.
[2025-02-05 22:08] LABS: APPEARANCE,URINE CLOUDY (CLEAR); GLUCOSE, URINE (UA) NEGATIVE (NEGATIVE); LEUKOCYTE ESTERASE ,URINE NEGATIVE Leu/uL (NEGATIVE); NITRATE,URINE NEGATIVE (NEGATIVE); OCCULT BLOOD,URINE SMALL (NEGATIVE)
[2025-02-05 22:09] LABS: ADD UA MICROSCOPIC YES
[2025-02-05 22:11] LABS: IMMATURE GRANULOCYTE ABSOLUTE 0.02 K/uL (0-1); NUCLEATED RED BLOOD CELLS 0.0 % (0.0-0.19); PLATELET COUNT (AUTO) 255 K/uL (130-400); RED BLOOD CELL COUNT(AUTO) 4.52 MIL/uL (4.00-5.50); RED CELL DISTRIBUTION WIDTH 13.3 % (11.0-15.5); WHITE BLOOD COUNT (AUTO) 11.0 K/uL (4.8-10.8)
[2025-02-05 22:21] LABS: CREATININE 0.9 mg/dL (0.5-1.0); GLOMERULAR FILTR. RATE CALC 65.0 mL/min (>90); GLUCOSE,RANDOM 112.0 mg/dL (70-105); SODIUM SERUM 142.0 mmol/L (136-145); UREA NITROGEN, BLOOD 23.0 mg/dL (7-18)
[2025-02-05 22:25] LABS: SQUAMOUS EPITHELIAL CELL,UR FEW /HPF (0-2)
[2025-02-05 22:25] LABS: ASPARTATE AMINOTRANSFERASE 31.0 U/L (10-37); TOTAL PROTEIN, SERUM 7.7 g/dL (6.0-8.3)
--- NOTE | 2025-02-05 22:26 | HMCIMG ---
EXAM: CR Chest, 1 view CLINICAL HISTORY: Chest pain. COMPARISON: CTA chest dated 12/02/2024. FINDINGS: The lungs show no infiltrates or other acute findings. No pleural effusion or pneumothorax. The cardiomediastinal silhouette is within normal limits. Tortuous and ectatic descending thoracic aorta. No acute osseous abnormality. IMPRESSION: Tortuous and ectatic descending thoracic aorta, which corresponds with descending thoracic aortic aneurysm when compared to the previous CTA chest. The lungs are clear. No gross changes within the limits of cross-modality comparison. /[place]
[2025-02-05] MEDS: LIDOCAINE HCL 2% VISCOUS 15 ML UDCUP PO ONE (22:47)
[2025-02-05] MEDS: MAG/ALUM/SIMETH 30 ML UDCUP PO ONE (22:47)
[2025-02-05] MEDS: SIMETHICONE 80 MG TAB.CHEW PO ONE (22:48)
--- NOTE | 2025-02-05 23:19 | EKG ---
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
--- NOTE | 2025-02-05 23:33 | ERN ---
ED Note History of Present Illness Stated Complaint: ABDOMINAL PAIN Chief Complaint: Abdominal Pain Time Seen by MD: 21:27 Time Seen by Midlevel: 21:30 Dictation: 79-year-old female with a history of hypertension, cholesterol and diabetes coming in complaining of abdominal pain and passing gas. Patient states she ate a meat that has been in the Fridge for the day or two and thinks that is what made her stomach upset. Denies any fever, nausea or vomiting or diarrhea. Denies any chest pain, chest discomfort or shortness a breath. Allergies: Coded Allergies: No Known Drug Allergies (Unverified Allergy, Unknown, 04/04/24) Home Meds Active Scripts Cephalexin Monohydrate (Keflex) 500 Mg Cap, 1 CAP PO BID for 5 Days, #10 CAP 0 Refills Prov:FERN FLORES 12/03/24 Prednisone (Prednisone) 5 Mg Tablet, 1 TAB PO BID for 7 Days, #14 TAB 0 Refills Prov:GAVIN CASTILLO MD 06/16/24 Azithromycin (Azithromycin) 500 Mg Tablet, 1 TAB PO DAILY for 5 Days, #5 TAB 0 Refills Prov:GAVIN CASTILLO MD 06/16/24 Albuterol Sulfate (Ventolin Hfa) 90 Mcg Hfa.aer.ad, 2 PUFF IH Q4HPRN PRN for wheezing for 30 Days, #18 GM 0 Refills Prov:GAVIN CASTILLO MD 06/16/24 Past Medical History Past Medical History: Diabetes-Type II, High Cholesterol, Hypertension Surgical History: None Review of System Dictation Constitutional: Negative for fever,chills, and weight loss Eyes: Negative for injury, pain,redness, and discharge ENT: Negative for injury,pain or swelling Cardiovascular: Negative for chest pain, palpitations, and edema Respiratory: Negative for shortness of breath, cough, and wheezing, Abdomen/GI: Complaining of generalized abdominal pain Back: Negative for injury and pain : Negative for injury, bleeding and discharge MS/Extremity: Negative for injury and deformity Skin: Negative for rash, and discoloration Neuro: Negative for headache, weakness, numbness, tingling, and seizure Psych: Negative for suicide ideation, homicidal ideation, and hallucinations Review of Systems: was completed Initial Vital Sign VS Vital Signs Date Time Temp Pulse Resp B/P (MAP) Pulse Ox O2 Delivery O2 Flow Rate FiO2 12/24/25 21:31 98.1 91 16 168/85 97 Room Air 0 02/05/25 22:05 21 Physical Exam Dictation General: awake, alert, NAD Head/Face: Normocephalic, atraumatic Eyes: PERRL, EOMI, vision at baseline ENT: oral cavity clear, TMs clear, no signs of infection Neck: Trachea midline, supple, no nuchal rigidity Cardiovascular: RRR, normal S1/S2, No MRGs, no JVD Respiratory: CTAB, no respiratory distress, No rales or wheezes Abdomen: Soft, non-tender, non-distended, normal bowel sounds, no guarding or rebound. Skin: Warm, dry, normal turgor, no rash MS/Extremity: Pulses equal, no cyanosis, neurovascular intact, FROM Neuro: COAx4, GCS 15, strength 5/5, CN 2-12 intact, normal cerebellar exam, normal gait, Psych: Normal behavior, mood, and affect normal Results (Laboratory/Radiology) Laboratory/Radiology Laboratory Tests Test 02/05/25 21:58 02/05/25 22:05 Urine Color YELLOW (YELLOW) Urine Appearance CLOUDY (CLEAR) H Urine pH 5.0 (5.0-8.0) Urine Specific [place] 1.025 (1.001-1.031) Urine Protein NEGATIVE mg/dL (NEGATIVE) Urine Glucose (UA) NEGATIVE mg/dL (NEGATIVE) Urine Ketones NEGATIVE mg/dL (NEGATIVE) Urine Occult Blood SMALL (NEGATIVE) H Urine Nitrate NEGATIVE (NEGATIVE) Urine Bilirubin NEGATIVE mg/dL (NEGATIVE) Urine Urobilinogen 0.2 mg/dL (0.2-1.0) Urine Leukocyte Esterase NEGATIVE [place]/uL Urine RBC 2-5 /HPF (0-1) H Urine WBC 2-5 /HPF (0-1) H Urine Squamous Epithelial Cells FEW /HPF (0-2) Urine Bacteria RARE /HPF (None Seen) White Blood Count 11.0 K/uL (4.8-10.8) H Red Blood Count 4.52 MIL/uL (4.00-5.50) Hemoglobin 14.1 g/dL (12.0-16.0) Hematocrit 41.8 % (36-48) Mean Corpuscular Volume 92.5 fL (79-99) Mean Corpuscular Hemoglobin 31.2 pg (27.0-33.0) Mean Corpuscular Hemoglobin Concent 33.7 g/dL (32.0-36.0) Red Cell Distribution Width 13.3 % (11.0-15.5) Platelet Count 255 K/uL (130-400) Mean Platelet Volume 9.9 fL (7.5-10.5) Immature Granulocyte % (Auto) 0.2 % (0-1) Neutrophils (%) (Auto) 82.9 % (40.0-77.0) H Lymphocytes (%) (Auto) 10.0 % (21.0-51.0) L Monocytes (%) (Auto) 5.6 % (3.0-13.0) Eosinophils (%) (Auto) 1.1 % (0.0-8.0) Basophils (%) (Auto) 0.2 % (0.0-5.0) Neutrophils # (Auto) 9.2 K/uL (1.8-7.7) H Lymphocytes # (Auto) 1.1 K/uL (1.0-4.8) Monocytes # (Auto) 0.6 K/uL (0.1-1.0) Eosinophils # (Auto) 0.12 K/uL (0.00-0.70) Basophils # (Auto) 0.02 K/uL (0.00-0.20) Absolute Immature Granulocyte (auto 0.02 K/uL (0-1) Nucleated Red Blood Cells 0.0 % (0.0-0.19) White Cell Morphology Comment See comments Sodium Level 142 mmol/L (136-145) Potassium Level 4.1 mmol/L (3.5-5.1) Chloride Level 108 mmol/L (101-111) Carbon Dioxide Level 27 mmol/L (21-32) Blood Urea Nitrogen 23 mg/dL (7-18) H Creatinine 0.9 mg/dL (0.5-1.0) Glomerular Filtration Rate Calc 65 mL/min (>90) Random Glucose 112 mg/dL (70-105) H Total Calcium 8.5 mg/dL (8.5-10.1) Total Bilirubin 0.3 mg/dL (0.2-1.0) Direct Bilirubin 0.1 mg/dL (0.0-0.3) Aspartate Amino Transf (AST/SGOT) 31 U/L (10-37) Alanine Aminotransferase (ALT/SGPT) 32 U/L (12-78) Alkaline Phosphatase 89 U/L (50-136) Troponin I High Sensitivity 7 ng/L (4-50) Total Protein 7.7 g/dL (6.0-8.3) Albumin 3.5 g/dL (3.5-5.0) Lipase 26 U/L (16-77) Labs Reviewed?: Yes EKG Comment: EKGs done at 2316. Sinus rhythm at a rate of 82. Ventricular premature complex. Low voltage. No STEMI interpreted by ER MD. X-RAY Comment: [facility] [address] [place] [address] IMAGING REPORT Signed PATIENT: EBONI LEO MR#: [id number] : 1945 SEX: F AGE: 79 LOCATION: [facility] ORDER 36 STATUS: REG ER REPORT#: [id number] SERVICE 35 REASON: cp ORDERING PHYSICIAN: DEEPA HATFIELD CNP PROCEDURE: CXR1VW - CHEST 1VW EXAM: CR Chest, 1 view CLINICAL HISTORY: Chest pain. COMPARISON: CTA chest dated 12/02/2024. FINDINGS: The lungs show no infiltrates or other acute findings. No pleural effusion or pneumothorax. The cardiomediastinal silhouette is within normal limits. Tortuous and ectatic descending thoracic aorta. No acute osseous abnormality. IMPRESSION: Tortuous and ectatic descending thoracic aorta, which corresponds with descending thoracic aortic aneurysm when compared to the previous CTA chest. The lungs are clear. No gross changes within the limits of cross-modality comparison. /[place] DICTATED BY: RAZ CARLSON Jr., MD DATE: 02/05/252324 ELECTRONICALLY SIGNED BY: RAZ CARLSON Jr., MD DATE: 02/05/252324 CT Scan Comment: [facility] [address] [place] [address] IMAGING REPORT Signed PATIENT: EBONI LEO MR#: [id number] : 1945 SEX: F AGE: 79 LOCATION: [facility] ORDER 43 STATUS: REG ER REPORT#: [id number] SERVICE 42 REASON: abnormal xray ORDERING PHYSICIAN: DEEPA HATFIELD CNP PROCEDURE: CTA CHEST - CT ANGIO CHEST EXAM: CTA Chest with Intravenous Contrast for Aortic Dissection CLINICAL HISTORY: Patient presents with an abnormal chest X-ray. TECHNIQUE: Axial CTA images of the chest were obtained with intravenous contrast using an aortic dissection protocol. MIP reconstructed images were created and reviewed. COMPARISON: Prior CT angio chest dated December 02, 2024. FINDINGS: AORTA: Atheromatous calcifications are seen in the aorta. There is aneurysmal dilatation of the distal aortic arch and descending thoracic aorta measuring 5.6 x 5.3 cm with eccentric mural thrombosis causing approximately 20-30% luminal narrowing. No evidence of aortic dissection. PULMONARY ARTERIES: The examination is optimized for evaluation of the aorta rather than the pulmonary arteries. No central or segmental pulmonary embolism identified. LUNGS: Left-sided minimal basal pleural thickening noted with subtle fibrotic changes in the posterobasal segment of the lower lobe. No mass or focal consolidation. PLEURAL SPACES: No pneumothorax or pleural effusion. HEART: No cardiomegaly. No significant pericardial effusion. LYMPH NODES: No lymphadenopathy. BONES: Multilevel mild degenerative changes of the spine. No acute osseous abnormality. UPPER ABDOMEN: The gallbladder is surgically absent. IMPRESSION: 1. Descending thoracic aortic aneurysm measuring 5.6 x 5.3 cm with eccentric mural thrombosis causing 20-30% luminal narrowing. No significant interval change from the previous scan dated 02 December 2024. 2. No evidence of aortic dissection. 3. Left mild smooth posterobasal pleural thickening with subtle fibrotic changes. /[place] DICTATED BY: RAZ CARLSON Jr., MD DATE: 02/06/25256 ELECTRONICALLY SIGNED BY: RAZ CARLSON Jr., MD DATE: 02/06/25256 ED Course ED Course Orders Procedure Category Date Status Time Cbc With Differential LAB 02/05/25 Complete 21:36 Basic Metabolic Panel LAB 02/05/25 Complete 21:36 Lipase LAB 02/05/25 Complete 21:36 Hepatic Function Panel LAB 02/05/25 Complete 21:36 Urinalysis Profile LAB 02/05/25 Complete 21:36 Troponin I High LAB 02/05/25 Complete Sensitivity 21:36 Chest 1vw RAD 02/05/25 Resulted 21:36 Simethicone (Mylicon) PHA 02/05/25 Complete 22:30 Pantoprazole 40mg Tab PHA 02/05/25 Complete (Protonix 40mg Tab 22:30 Lidocaine Hcl 2% PHA 02/05/25 Complete Viscous (Lidocaine Hcl 22:30 Mag/Alum/Simeth 30ml PHA 02/05/25 Complete (Maalox Plus 30ml) 22:30 12 Lead Ekg Tracing- EKG 02/05/25 Complete Technical 22:[address] 02/05/25 Resulted 23:43 Current Medications Medications (Trade) Dose Ordered Sig/Dexter Route PRN Reason Start Time Stop Time Status Last Admin Dose Admin Al Hydroxide/Mg Hydroxide (MAALox PLUS 30ML) 30 ml ONCE ONCE PO 02/05/25 22:30 02/05/25 22:33 DC 02/05/25 22:47 Lidocaine HCl (Lidocaine HCl 2% Viscous) 10 ml ONCE ONCE PO 02/05/25 22:30 02/05/25 22:33 DC 02/05/25 22:47 Pantoprazole Sodium (PROTonix 40MG TAB) 40 mg ONCE ONCE PO 02/05/25 22:30 02/05/25 22:33 DC 02/05/25 22:48 Simethicone (Mylicon) 40 mg ONCE ONCE PO 02/05/25 22:30 02/05/25 22:32 DC 02/05/25 22:48 Vital Signs Date Time Temp Pulse Resp B/P (MAP) Pulse Ox O2 Delivery O2 Flow Rate FiO2 02/05/25 23:20 95 18 127/75 97 Room Air* 0 02/05/25 22:05 98.1 88 18 181/79 98 Room Air* 0 21 02/05/25 21:31 98.1 91 16 168/85 97 Room Air 0 Medical Decision Making MDM MDM: 79-year-old female with a past medical history of hypertension, diabetes, hyperlipidemia presents with the abdominal pain discomfort significant fluctuance after eating left arm meat from her refrigerator. She reports it has been in the frayed for 1-2 days and may have spoiled. She states symptoms started shortly after eating that. She denies any fever, nausea vomiting or diarrhea, constipation chest pain shortness a breath or urinary symptoms. No recent travel, sick contacts, antibiotic use or prior bowel obstruction history. No GI bleeding reported. On physical exam mild abdominal generalized tenderness soft and nondistended. No guarding, rebound or rigidity. No CVA tenderness. No peritoneal signs. CBC shows no leukocytosis, no anemia, no thrombocytopenia. No transaminitis. Lipase within normal range. UA shows no infection. EKGs shows no acute i schemic changes. After simethicone patient states her symptoms have resolved. History promptly suggests food related to gastritis or gastroenteritis triggered floor strains yesterday with a questionable meat. No evidence of emergent pathology requiring admission at this time. BECAUSE OF THE PREVIOUS ANEURYSM SEEN ON PREVIOUS IMAGE AND THE CURRENT PRESENTING SYMPTOMS NEEDED RE- EVALUATION OF ANEURYSM WHICH DID NOT DISCLOSE CHANGES FROM PREVIOUS ONE. IN HIS SHE WILL BE DISCHARGED IN STABLE CONDITION. Differential diagnosis:acs, gerd, gastroenteritis, pancreatitis Rationale: Tests considered and ordered secondary to shared decision making include: Previous outside records reviewed: Old ER visits. Risk of complication and/or morbidity or mortality of patient management: None Medications-Per medication reconciliation Need for hospitalization: Patient does not meet criteria for hospitalization. Need for emergency major/minor surgery: No There are no social concerns with this patient. Prescription drug management Prescriptions will include symptomatic care Patient's prior external medical records from other ER visits were reviewed by me as indicated. Prior testing and results from previous visits were reviewed. Prior tests were taken into account with medical decision making and resource utilization, independent historian/historians were used to obtain complete medical history. I independently interpreted the test that were performed, results were reviewed by me and considered findings on radiology if ordered. Medical management and examination interpretation discussions were had by me with other qualified healthcare professionals as indicated for the patient's care. DX & DISP Disposition: Discharge Departure Impression: Primary Impression: Dilatation of thoracic aorta Additional Impression: Gastritis Condition: Stable Additional Instructions: YOU HAVE BEEN REVIEWED IN THE EMERGENCY DEPARTMENT AT [facility] AFTER PRESENTING WITH CHEST PAIN. AFTER CONSIDERING YOUR HISTORY, YOUR RISK FACTORS, YOUR EKG AND YOUR BLOOD TEST TROPONINS, HAVE BEEN FOUND TO BE AT VERY LOW RISK LESS THAN (1 IN 100) OF HAVING A MAJOR ADVERSE CARDIAC EVENT (LIKE HEART ATTACK) IN THE NEAR FUTURE. IN THE " LOW RISK" GROUP, THE RISKS OF DOING FURTHER TESTS AND TREATMENT THE INPATIENT OUTWEIGHS THE BENEFITS. IN MANY PATIENTS IN THE LOW RISK GROUP FOR THE TEST OF ANY SORT OR UNNECESSARY, HOWEVER HE SHOULD DISCUSS THIS FURTHER WITH HIS GENERAL PRACTITIONER WHO WILL UNDERSTAND THE MEDICAL AND PERSONAL BACKGROUNDS BETTER. BECAUSE WE HAVE NEVER DECLARED YOU" NO RISK" WE WOULD SUGGEST. 1 RETURNING FOR MEDICAL REVIEW IF YOU HAVE FURTHER EPISODES OF CHEST PAIN/ARM PAIN OR OTHER CONCERNING SYMPTOMS LIKE DIZZINESS, COLLAPSE, PALPITATIONS OR SHORTNESS OF BREATH. 2. FOLLOWING UP WITH YOUR LOCAL DOCTOR WHO WILL CONSIDER THE NEED FOR FURTHER TESTING AND WILL ALSO ENSURE THAT ANY MODIFIABLE RISK FACTORS YOU MAY HAVE FOR HEART DISEASE ARE OPTIMALLY MANAGED. PATIENT WILL BE DISCHARGED IN STABLE CONDITION AT THE MOMENT DISCHARGE PATIENT STATES , NO CHEST PAIN Referrals: THOMAS MAURICE MD (PCP) Time of Disposition: 02:02 DEEPA HATFIELD PORTFOLIO DIRECTOR Feb 05, 2025 23:33 GAVIN CASTILLO MD Feb 06, 2025 02:02
[2025-02-05] MEDS ORDERED: IOHEXOL-350 75 ML VIAL IV ONE (23:43)
--- NOTE | 2025-02-06 01:58 | HMCIMG ---
EXAM: CTA Chest with Intravenous Contrast for Aortic Dissection CLINICAL HISTORY: Patient presents with an abnormal chest X-ray. TECHNIQUE: Axial CTA images of the chest were obtained with intravenous contrast using an aortic dissection protocol. MIP reconstructed images were created and reviewed. COMPARISON: Prior CT angio chest dated December 02, 2024. FINDINGS: AORTA: Atheromatous calcifications are seen in the aorta. There is aneurysmal dilatation of the distal aortic arch and descending thoracic aorta measuring 5.6 x 5.3 cm with eccentric mural thrombosis causing approximately 20-30% luminal narrowing. No evidence of aortic dissection. PULMONARY ARTERIES: The examination is optimized for evaluation of the aorta rather than the pulmonary arteries. No central or segmental pulmonary embolism identified. LUNGS: Left-sided minimal basal pleural thickening noted with subtle fibrotic changes in the posterobasal segment of the lower lobe. No mass or focal consolidation. PLEURAL SPACES: No pneumothorax or pleural effusion. HEART: No cardiomegaly. No significant pericardial effusion. LYMPH NODES: No lymphadenopathy. BONES: Multilevel mild degenerative changes of the spine. No acute osseous abnormality. UPPER ABDOMEN: The gallbladder is surgically absent. IMPRESSION: 1. Descending thoracic aortic aneurysm measuring 5.6 x 5.3 cm with eccentric mural thrombosis causing 20-30% luminal narrowing. No significant interval change from the previous scan dated 02 December 2024. 2. No evidence of aortic dissection. 3. Left mild smooth posterobasal pleural thickening with subtle fibrotic changes. /[place]
--- NOTE | 2025-02-06 02:49 | NUR ---
WEIGHT LOSS CONSULTANT AND CHARGE NURSE NOTIFIED ABOUT TRANSPORT NEEDS.
[2025-02-06 02:51] VITALS: BP 113/64; PULSE 75; RESP 15; TEMP 98.1; O2SAT 98
--- NOTE | 2025-02-06 03:11 | NUR ---
PER CUSTOM BOOKBINDER JUSTYNA BARR PROVIDED FOR PT.
[2025-02-06] MEDS ORDERED: IOHEXOL-350 75 ML VIAL IV ONE (15:32)
== END 2025-02-06 03:11 | disposition home or self-care (01) ==
LOC: EDH 21:25
DX: K29.70 Gastritis, unspecified, without bleeding (principal); E11.9 Type 2 diabetes mellitus without complications; E78.00 Pure hypercholesterolemia, unspecified; I10 Essential (primary) hypertension; Z79.52 Long term (current) use of systemic steroids
CPT/HCPCS: 99285; 71275; 71045; 80076; 84484; 80048; 83690; 85025; 81001; 36415; 93005; Q9967